=== PATIENT | female | born 1945 | race African-American/Black ===

== ENCOUNTER → 2016-11-19 | Outpatient (CLI) | payer OTHER, MEDICAID ==
--- NOTE | 2016-11-19 11:30 | DX ---
Biphasic Esophagram CLINICAL HISTORY: 71-year-old female with intermittent choking episodes and a "burning sensation" in her chest. TECHNIQUE: The patient ingested effervescent crystals and thick barium, and imaging of the hypopharyn x and of the cervical and thoracic esophagus was performed while standing. The patient was then place d in a 45 degree prone DICKSON position, and thin barium was ingested. The exam was truncated secondary t o limitation in patient positioning. Fluoroscopy Time: 1.3 minutes minutes (exposure dose of 52.40 mGy). COMPARISON STUDY: CT scan of the chest, dated January 26, 2016. FINDINGS: There is normal oral pharyngeal propulsion of the bolus into the hypopharynx with a normal, symmetrical appearance to the vallecula and the piriform sinuses. The posterior cervical esophagus i s normal. There is no cricopharyngeus spasm, achalasia, or Zenker's diverticulum. When the patient wa s placed in a 45 degree prone DICKSON position, there were several episodes of coughing after ingestion o f the barium (the patient indicates that this is typical). There is antegrade and some retrograde eso phageal dysmotility with intermittent tertiary esophageal contractions, and some gastroesophageal ref lux. There is a large hiatal hernia with a paraesophageal component. There is some mild luminal irreg ularity of the distal thoracic esophagus above the hiatal hernia, which may reflect an esophagitis al though a Breaux's esophagus cannot be excluded. As clinically indicated, endoscopic correlation may be of benefit. I provided a preliminary interpretation to the patient at times in performance. IMPRESSION: 1. Technically limited study secondary to patient positioning. 2. Large hiatal hernia with a paraesophageal component. 3. Esophageal dysmotility with presbyesophagus and gastroesophageal reflux. 4. Mild luminal irregularity of the distal thoracic esophagus above the GE junction which may reflect an esophagitis although a Breaux's dysplasia cannot be excluded; endoscopic correlation may be of b enefit, as clinically directed.
== END ==
LOC: FIMAGING 09:08
PROVIDERS: ATTEND Nurse Practitioner Family
DX: K44.9 Diaphragmatic hernia without obstruction or gangrene (principal); K21.9 Gastro-esophageal reflux disease without esophagitis

== ENCOUNTER 2017-05-01 10:29 | Emergency (ER) | payer OTHER, MEDICAID ==
[2017-05-01 10:34] VITALS: RESP 16; O2SAT 97
[2017-05-01] MEDS ORDERED: IBUPROFEN 600 MG TAB PO ONE (12:18)
--- NOTE | 2017-05-01 12:21 | EDPHY ---
H & P Time Seen by Provider: 05/01/17 11:43 HPI/ROS: HPI Headache. 71-year-old female by private vehicle with her daughter. This patient has a history of MS. She presents the emergency department complaining of a gradual onset occipital headache which started 3 days ago. She reports that has been intermittent in nature. She denies it is worse in the morning and gets better through the day. She reports that it also changes position and sometimes on the side of her head and sometimes on the top of her head. She states currently it is on the top of her head in the occipital region. She describes it as sharp and aching. She has not had headaches like this in the past. ROS: Constitutional: No fever, no chills. No weakness. Eyes: No discharge. No changes in vision. ENT: No sore throat. No nasal congestion or rhinorrhea. Respiratory: No cough. No shortness of breath. Cardiac: No chest pain, no palpitations. Gastrointestinal: No abdominal pain, no vomiting, no diarrhea. Genitourinary: No hematuria. No dysuria or increased frequency with urination. Musculoskeletal: No back pain. No neck pain. Chronic left arm pain. Otherwise denies extremity pain. Skin: No rashes. Neurological: As above. No focal weakness or altered sensation. Past medical history: Hypertension, aortic dissection, MS, chronic pain. Primary care is in [place]. Social history: Currently lives by herself. She is here with her daughter. No smoking. No alcohol. She ambulates with a walker. Physical Exam: General Appearance: Alert, no distress. This patient is responding to questions appropriately and in full sentences. This patient appears well- hydrated and well-nourished. Eyes: Pupils equal and round no pallor or injection. No lid edema, erythema or injection. No photophobia. No nystagmus. Head: Normocephalic atraumatic. Respiratory: There are no retractions, lungs are clear to auscultation with good air movement bilaterally. Cardiovascular: Regular rate and rhythm. No murmur. Gastrointestinal: Abdomen is soft and nontender, no masses, bowel sounds normal. No focal tenderness at McBurney's point. No Figueroa sign. Neurological: Motor sensory function is grossly intact. Cranial nerves are normal. Gait is normal. Skin: Warm and dry, no rashes. Musculoskeletal: Neck is supple and nontender. No pain on flexion of the neck. No significant suboccipital tenderness on palpation. No tenderness on palpation of the lateral soft tissues of the neck. Extremities are symmetrical. All joints range without pain or impingement. Psychiatric: No agitation. No depression. Database: EKG: Imaging: CT scan of head without contrast: Negative. Results were discussed with staff radiologist Dr. Allen Jin. Procedures: Emergency department course: After my evaluation I discussed pain medication. She does not want anything stronger than ibuprofen. She does not have any contraindications to ibuprofen. She consents to CT imaging of her head. 1:00 p.m., patient re-evaluated. Resting comfortably at this time. Results of CT scan were discussed with her and her daughter. Repeat neurologic exam is nonfocal. The patient feels comfortable going home. I will have her follow up with her neurologist or primary care physician for re-evaluation. Return to emergency department precautions were reviewed with her and her daughter thoroughly. All of their questions were answered. The patient was discharged home in good condition with her daughter. Differential Diagnosis: The differential diagnosis on this patient includes but is not limited to migraine type headache, cluster headache. MS exacerbation, subarachnoid hemorrhage, meningitis, encephalitis, cavernous sinus thrombosis, sagittal sinus thrombosis, temporal arteritis unlikely. This represents a partial list of diagnoses considered. These considerations are based on history, physical exam, past history, reassessment and diagnostic testing. Smoking Status: Current every day smoker Constitutional: Initial Vital Signs Temperature (C) 36.7 C 05/01/17 10:31 Heart Rate 72 05/01/17 10:31 Respiratory Rate 16 05/01/17 10:31 Blood Pressure 120/85 H 05/01/17 10:31 O2 Sat (%) 97 05/01/17 10:31 O2 Delivery Mode Room Air Allergies/Adverse Reactions: No Known Allergies Allergy (Verified 03/17/15 12:13) Home Medications: Medication Instructions Recorded Albuterol Sulfate [Proventil Hfa] 2 puffs IH Q6H PRN 05/11/13 Aspirin [Aspirin 325 mg (*)] 325 mg PO DAILY 05/11/13 Atorvastatin Calcium [Lipitor 10 10 mg PO DAILY 05/11/13 mg (*)] Cholecalciferol (Vitamin D3) 5,000 unit PO DAILY 05/11/13 [Vitamin D-3] Diclofenac Sodium 1% [Voltaren Gel 1 eryn TP DAILY PRN 05/11/13 (*)] Ergocalciferol (Vitamin D2) 50,000 unit PO MO 05/11/13 [Vitamin D2] Gabapentin 300 mg PO TID 05/11/13 Potassium Chloride 10 meq PO DAILY@08 05/11/13 Methocarbamol [Robaxin 750 mg (*)] 750 mg PO TID #90 tab 11/13/14 Furosemide [Lasix] 20 mg PO DAILY06 11/14/14 Ipratropium [place] [IPRATROPIUM 2 sprays EACHNARE TID 11/14/14 BROMIDE] Lidocaine 5% [Lidoderm 5% Patch 1 ea TD DAILY #7 patch 11/14/14 (*)] Lisinopril [Zestril 5 mg (*)] 5 mg PO DAILY 11/14/14 Omeprazole [Prilosec 20 mg] 20 mg PO DAILY 11/14/14 Polyethylene Glycol 3350 [Miralax 17 gm PO DAILY PRN 11/14/14 17 gm (*)] Acetaminophen/Codeine 300/30Mg 1 - 2 tab PO BID 03/17/15 [Tylenol #3 (*)] CYCLOBENZAPRINE HCL [Flexeril] 5 mg PO TID PRN 03/17/15 Carisoprodol [Soma (*)] 350 mg PO TIDMEAL 03/17/15 Famotidine [Pepcid] 40 mg PO HS 03/17/15 Metoprolol Succinate Xr [Toprol Xl 25 mg PO DAILY 03/17/15 25 mg (*)] oxyCODONE/APAP 5/325 [Percocet 1 - 2 tab PO Q6H PRN #10 tab 01/24/16 5/325 (*)] Medical Decision Making - Diagnostics Imaging Results: Imaging Impressions Head CT 05/01/17 12:10 Impression: Head CT within normal limits. If symptoms persist, consider MRI. A message was left for Dr. Cutler at 12:41 pm. General information for patients regarding this examination can be found at [email or web address]. If you have questions or comments about this report, please contact me at (hospital) or [phone] (cell). - Data Points Medications Given: Discontinued Medications Ibuprofen (Motrin) 600 mg PO EDNOW ONE Stop: 05/01/17 12:19 Last Admin: 05/01/17 12:28 Dose: 600 mg Departure - Departure Disposition: Home, Routine, Self-Care Clinical Impression: Headache Condition: Good Instructions: General Headache (ED) Additional Instructions: Read and follow provided instructions. Follow-up with your primary care physician, Dr. Ricks, tomorrow for re- evaluation. Ibuprofen dosin mg every 6 hours with meals for the next 3 days only. Take only as needed. Return to the emergency department for worsening headache, fever, vomiting or other serious concerns. Referrals: Norberto Ricks MD [Primary Care Provider] - As per Instructions
[2017-05-01 13:22] VITALS: BP 117/87; PULSE 70
[2017-05-01 13:23] VITALS: TEMP 97.9
== END 2017-05-01 13:23 | disposition home or self-care (01) ==
DX: R51 Headache (principal); I10 Essential (primary) hypertension; F17.200 Nicotine dependence, unspecified, uncomplicated; Z79.82 Long term (current) use of aspirin

== ENCOUNTER 2018-01-17 22:25 | Emergency (ER) | payer OTHER, MEDICAID ==
--- NOTE | 2018-01-17 23:01 | EDPHY ---
H & P Stated Complaint: l foot pain big toe Time Seen by Provider: 01/17/18 22:40 HPI/ROS: HPI The patient presents with left great toe pain, present for the last 1 month, getting progressively worse now to the point where she is having difficulty with ambulation secondary to pain. This started slowly and has gotten progressively worse and has been constant. It is associated with some redness of the toe. She has not had any fevers or chills. She denies any trauma. She has never been diagnosed with gout. Also, she is having pain of her left leg throughout, it is achy in nature and constant. This is been present for about 1 week. She has a history of a prior left-sided DVT and this feels very similar. REVIEW OF SYSTEMS Constitutional: No fever, no chills. Eyes: No discharge. ENT: No sore throat. Cardiovascular: No chest pain, no palpitations. Respiratory: No cough, no shortness of breath. Gastrointestinal: No abdominal pain, no vomiting. Genitourinary: No hematuria. Musculoskeletal: No back pain. Skin: No rashes. Neurological: No headache. PMHx: Hypertension, history of aortic dissection question of multiple sclerosis based on her pain Soc Hx: Here with her daughter PHYSICAL General Appearance: Alert, no distress Eyes: Pupils equal and round no pallor or injection ENT, Mouth: Mucous membranes moist Respiratory: Breathing comfortably Neurological: A&O, moves all extremities Skin: Warm and dry, no rashes Musculoskeletal: Neck is supple non tender Extremities: Left great toe is diffusely erythematous and tender to palpation without any clear areas of fluctuance, there is no drainage, the toe is held in dorsiflexion though she can range it Psychiatric: Patient is oriented X 3, there is no agitation Source: Patient Exam Limitations: No limitations - Personal History Current Tetanus/Diphtheria Vaccine: Unsure Current Tetanus Diphtheria and Acellular Pertussis (TDAP): Unsure - Medical/Surgical History Hx Asthma: No Hx Chronic Respiratory Disease: No Hx Diabetes: No Hx Cardiac Disease: No Hx Renal Disease: No Hx Cirrhosis: No Hx Alcoholism: No Hx HIV/AIDS: No Hx Splenectomy or Spleen Trauma: No Other PMH: htn, aortic dissection, chronic pain. ??? ms - Social History Smoking Status: Current every day smoker Constitutional: Initial Vital Signs Temperature (C) 36.3 C 01/17/18 22:32 Heart Rate 86 01/17/18 22:32 Respiratory Rate 18 01/17/18 22:32 Blood Pressure 124/93 H 01/17/18 22:32 O2 Sat (%) 93 01/17/18 22:32 O2 Delivery Mode Room Air Allergies/Adverse Reactions: No Known Allergies Allergy (Verified 03/17/15 12:13) Home Medications: Medication Instructions Recorded Albuterol Sulfate [Proventil Hfa] 2 puffs IH Q6H PRN 05/11/13 Aspirin [Aspirin 325 mg (*)] 325 mg PO DAILY 05/11/13 Atorvastatin Calcium [Lipitor 10 10 mg PO DAILY 05/11/13 mg (*)] Cholecalciferol (Vitamin D3) 5,000 unit PO DAILY 05/11/13 [Vitamin D-3] Diclofenac Sodium 1% [Voltaren Gel 1 eryn TP DAILY PRN 05/11/13 (*)] Ergocalciferol (Vitamin D2) 50,000 unit PO MO 05/11/13 [Vitamin D2] Gabapentin 300 mg PO TID 05/11/13 Ipratropium [place] [IPRATROPIUM 2 sprays EACHNARE TID 11/14/14 BROMIDE] Lidocaine 5% [Lidoderm 5% Patch] 1 ea TD DAILY #7 patch 11/14/14 Lisinopril [Zestril 5 mg (*)] 5 mg PO DAILY 11/14/14 Omeprazole [Prilosec 20 mg] 20 mg PO DAILY 11/14/14 Acetaminophen/Codeine 300/30Mg 1 - 2 tab PO BID 03/17/15 [Tylenol #3 (*)] Metoprolol Succinate Xr [Toprol Xl 25 mg PO DAILY 03/17/15 25 mg (*)] predniSONE 40 mg PO DAILY 5 Days tab 01/17/18 Medical Decision Making - Diagnostics Imaging Results: Imaging Impressions Toe X-Ray 01/17/18 22:56 Impression: No definite acute osseous abnormality is seen. Extremity Venous Study 01/17/18 22:57 Impression: No evidence of deep vein thrombosis in the left lower extremity. Results called and discussed with Malini Salazar MD on 01/17/2018 at 23:41 Imaging: Discussed imaging studies w/ cash management specialist Radiologist, I viewed and interpreted images myself Differential Diagnosis: 72-year-old female with multiple medical problems presents with left great toe pain progressive over the last 1 month atraumatic with no systemic signs of illness. Also with several weeks of left leg pain. Differential diagnosis includes gout, gouty arthritis, less likely cellulitis, DVT is a consideration. Plan for x-ray of the great toe and DVT study of her left leg. In the emergency room, patient's x-ray in DVT study were both unremarkable. I will treat her for presumed gout with a course of prednisone. She was given her 1st dose here. 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 I have advised that she follow up with her primary care doctor in a few days. - Data Points Medications Given: Discontinued Medications Ibuprofen (Motrin) 600 mg PO EDNOW ONE Stop: 01/17/18 23:52 Last Admin: 01/17/18 23:56 Dose: 600 mg Prednisone (Prednisone) 40 mg PO EDNOW ONE Stop: 01/17/18 23:51 Last Admin: 01/17/18 23:56 Dose: 40 mg Departure - Departure Disposition: Home, Routine, Self-Care Clinical Impression: Pain of left great toe Condition: Good Instructions: Low Purine Diet (ED), Gout (ED) Additional Instructions: I recommend that you drink plenty of fluids. I suspect the pain in her toe is related to gout and that is why I am prescribing the prednisone. I would like for you to follow up with the it director and I have given you the information for Dr. Sagrent below. I encourage you to return to the emergency department if your worse in any way. Referrals: Lidya Sargent [Doctor of Podiatric Medicine] - As per Instructions Prescriptions: predniSONE 40 mg PO DAILY 5 Days tab
[2018-01-17] MEDS ORDERED: predniSONE 20 MG TAB PO ONE (23:50)
[2018-01-17] MEDS ORDERED: IBUPROFEN 600 MG TAB PO ONE (23:51)
[2018-01-18 00:07] VITALS: BP 121/70; PULSE 80; RESP 16; TEMP 97.9; O2SAT 96
== END 2018-01-18 00:07 | disposition home or self-care (01) ==
DX: M79.675 Pain in left toe(s) (principal); I10 Essential (primary) hypertension; F17.200 Nicotine dependence, unspecified, uncomplicated; Z79.82 Long term (current) use of aspirin
CPT/HCPCS: 73660; 93971; 99284; J7512

== ENCOUNTER → 2019-04-07 | Outpatient (CLI) | payer OTHER, MEDICAID | LOC: FIMAGING 15:18 ==

== ENCOUNTER 2019-04-13 13:01 | Observation (INO) | payer OTHER, MEDICAID | END 2019-04-14 17:57 | disposition home health service (06) | LOC: F3N 18:30 ==